=== PATIENT | female | born 1995 | race Caucasian/White ===

== ENCOUNTER 2016-03-16 06:07 | Emergency (ER) | payer OTHER ==
[~2016-03-16] VITALS: Ht 152.4 cm; Wt 49.9 kg
[2016-03-16] MEDS ORDERED: ONDANSETRON ODT 4 MG TAB.RAPDIS PO ONE (06:45)
[2016-03-16] MEDS ORDERED: FENTANYL PF 100 MCG/2 ML VIAL. IM ONE (06:45)
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
[2016-03-16 07:10] LABS: NEG OBC UR NEG; POS OBC UR POS
[2016-03-16 07:16] LABS: BILIRUBIN,URINE NEGATIVE (NEG); GLUCOSE,URINE NEGATIVE (NEG); NITRITE,URINE NEGATIVE (NEG); PH,URINE 5.5; PROTEIN,URINE NEGATIVE (NEG-TRACE); UROBILINOGEN,URINE 0.2 mg/dL (0.2 mg/dL)
[2016-03-16 08:00] VITALS: BP 107/73
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
[2016-03-16] MEDS ORDERED: PROPARACAINE 0.5% OPHTH SOLUTION 15ML BOTTLE. OD ONE (09:00)
[2016-03-16] MEDS ORDERED: FLUORESCEIN OPHTH TEST STRIP. OD ONE (09:00)
== END 2016-03-16 09:20 | disposition home or self-care (01) ==
LOC: ER 06:07
DX: S06.9X1A Unspecified intracranial injury with loss of consciousness of 30 minutes or less, initial encounter (principal); S00.83XA Contusion of other part of head, initial encounter; H54.61 Unqualified visual loss, right eye, normal vision left eye; Y08.89XA Assault by other specified means, initial encounter; Y93.89 Activity, other specified; Y92.89 Other specified places as the place of occurrence of the external cause; Y99.8 Other external cause status
CPT/HCPCS: 70450; 70486; 72125; 81003; 81025; 96372; 99285; J3010; Q0162